=== PATIENT | female | born 1975 | race Caucasian/White ===

== ENCOUNTER 2017-02-18 02:04 | Inpatient (IN) | payer BC ==
--- NOTE | ~2017-02-18 | PA ---
Unit #: [id number] #: [id number] Patient: JOE ADAMS [id number] [facility] [address] [place] [address] [id number] I MR#: [id number] NAME: JOE ADAMS ROOM: P110 Age: 41 Sex: F Admission Date: 02/18/2017 : 1975 Date of Assessment: Attending Physician: Clint Liu M.D. Admitting Physician: Clint Liu M.D. Primary Care Physician: Primary Care Physician No PSYCHIATRIC ASSESSMENT DATE OF SERVICE 02/18/2017. IDENTIFYING DATA Ms. Adams is a 41-year-old, , white female, who is a resident of [place], [place], was self-referred to the hospital on a voluntary basis. CHIEF COMPLAINT "I've been confused, has been taken off Haldol 3 days ago." HISTORY OF PRESENT ILLNESS Ms. Adams is a 41-year-old female, who reports that she feels confused since she has been taken off Haldol 3 days ago and reports that she is not sleeping well and has been having significant mood swings, increasing suicidal thoughts with a plan to find a gun or use carbon monoxide and reports that she and are having increasing verbal altercations and does report some mixed episode of bipolar disorder, stating that her energy level is higher than usual and "I'm never going to get better." She also endorses feelings of hopelessness and helplessness, and suicidal ideation and was seen to be danger to self and therefore recommendation for inpatient level of care for safety and stabilization was made. 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 PAST PSYCHIATRIC HISTORY The patient has had a history of multiple inpatient psychiatric hospitalizations at [facility] and other facilities and has been diagnosed and treated for schizoaffective disorder, bipolar type. Review of the medical records indicate that she has been on a combination of psychotropic medications including long-acting monthly injection of Aristada. PAST MEDICAL HISTORY No acute or chronic medical illnesses. ALLERGIES No known medication allergies. PERSONAL AND SOCIAL HISTORY Unit #: [id number] #: [id number] Patient: JOE ADAMS A 41-year-old white female, who reports that she is and lives at home with her and has fairly decent social support system. MENTAL STATUS EXAMINATION Middle-aged white female, who was casually dressed with fair personal hygiene, appears to be in no acute distress or discomfort. She was awake and alert on interaction with intact orientation to time, place, and person. Her mood was anxious and depressed with a congruent affect. Speech was slow and restricted in content. Her thought processes were disorganized with some looseness of associations and flight of ideas and paranoid ideations and suicidal ideations. Her insight and judgment remain significantly impaired. DIAGNOSTIC IMPRESSION Psychiatric: Schizoaffective disorder, bipolar type, most recent episode depressed, recurrent, moderate, with psychosis. Medical: None. Stressors: Moderate psychosocial stressors. TREATMENT PLAN 1. The patient has presented with a history of chronic mental illness and has been decompensating and will need inpatient hospitalization for safety and stabilization. We will start her back on her home medications. We will adjust the medications and monitor response. 2. Supportive therapy was provided to the patient. 3. Safe, structured, and nourishing environment will be provided. ESTIMATED LENGTH OF STAY 5 to 7 days. ABILITY TO HELP SELF Limited. WILLINGNESS TO HELP SELF The patient appears to be willing to help self. STRENGTHS 1. Communicative. 2. Cooperative. PROBLEMS 1. Chronic dysphoric symptoms. 2. Poor social support system. DISCHARGE CRITERIA This will be contingent upon the patient's ability to show resolution of her depression and psychosis and her ability to stay safe to herself, particularly after discharge from the hospital. Dictated by... Suzan Simeon/chiquita TD: 02/18/2017 06:57 JOB #: [id number] Unit #: [id number] #: [id number] Patient: JOE ADAMS PSYCHIATRIC ASSESSMENT Page 1 of 1 X Clint Liu MD PSYCHIATRIC ASSESSMENT
--- NOTE | ~2017-02-18 | PN ---
Unit #: [id number] #: [id number] Patient: JOE STILL [id number] [facility] [address] [place] [address] [id number] MR#: [id number] NAME: JOE STILL. ROOM: [facility] Age: 41 Sex: F Admission Date: 02/18/2017 : 1975 Attending Physician: Clint Liu M.D. Admitting Physician: Clint Liu M.D. Primary Care Physician: Primary Care Physician Alicia HOLM NOTES DATE OF SERVICE 02/17/2017 DISCUSSION Ms. Still is a 41-year-old white female who was seen today. Chart was reviewed and case was discussed with the staff. She has been anxious, withdrawn, and rather seclusive to herself. Meanwhile, she has been cooperative with the treatment recommendations and has been taking the medications and tolerating them fairly well with no reported side effects. MENTAL STATUS EXAMINATION Middle-aged white female who is casually dressed with fair personal hygiene, appears to be in no acute distress or discomfort. The patient was awake and alert with impaired attention and concentration. Her mood is anxious with congruent affect. She denies any suicidal or homicidal ideations. Her insight and judgment remain slightly impaired. TREATMENT PLAN 1. We will continue her on her current medications and treatment protocol. We will monitor her response to the medications and make further adjustments as needed. 2. We will continue to follow up. Dictated by... Clint Liu M.D. IAA/bzg TD: 02/21/2017 11:18 JOB #: [id number] DANIEL PROGRESS NOTES Page 1 of 1 X Clint Liu MD PROGRESS NOTE
--- NOTE | ~2017-02-18 | HP ---
Unit #: [id number] #: [id number] Patient: JACQUI ADAMS [id number] [place] [address] [id number] MR#: [id number] NAME: JACQUI ADAMS. ROOM: P110 Age: 41 Sex: F Admission Date: 02/18/2017 : 1975 Attending Physician: Clint Liu M.D. Admitting Physician: Clint Liu M.D. Primary Care Physician: Primary Care Physician No HISTORY AND PHYSICAL HISTORY OF PRESENT ILLNESS Jacqui is a 41 year old admitted to [address] [place] [address] with psychotic behavior. She was taken off of her Haldol three days ago. She reports that she has not been sleeping well and has had increased mood swings. She has had other admissions to this facility for treatment of the same. PAST MEDICAL HISTORY Obesity. PAST SURGICAL HISTORY 1. Cholecystectomy. 2. Pilonidal cyst resected 3. Lipoma removed. ALLERGIES No known drug allergies. SOCIAL HISTORY Smokes at least one pack per day. Drinks alcohol on occasion and denies illicit drug use. FAMILY HISTORY Medically noncontributory. REVIEW OF SYSTEMS CONSTITUTIONAL: No fever or chills. HEENT: Denies any sore throat, ear pain or runny nose. CARDIOVASCULAR: Denies chest pain, irregular heart rhythm or palpitations. CHEST: Denies shortness of breath or cough. No hemoptysis. GASTROINTESTINAL: Denies nausea, vomiting, diarrhea or chronic constipation. ENDOCRINE: Denies history of increased thirst or urination. No recent significant weight loss or gain. GENITOURINARY: Denies dysuria, frequency, or hematuria. SKIN: Denies any rashes. HEMATOLOGIC: Denies history of increased bleeding or bruising. MUSCULOSKELETAL: Denies any hot, swollen joints. No generalized muscle pain. NEUROLOGIC: Denies problems with vision or speech. No frequent, severe headaches. No numbness, tingling or weakness in any extremities. Denies loss of bladder or bowel control. Unit #: [id number] #: [id number] Patient: JACQUI ADAMS CURRENT MEDICATIONS 1. Haldol 10 mg q.h.s. 2. Sinequan 25 mg q.h.s. 3. [place] 300 mg b.i.d. 4. Vistaril 50 mg t.i.d. 5. Vibramycin 100 mg b.i.d. 6. Milk of Magnesia p.r.n. 7. Maalox p.r.n. 8. Tylenol p.r.n. 9. Thorazine 50 mg q day PHYSICAL EXAMINATION GENERAL: Alert, obese, in no apparent distress. VITAL SIGNS: Blood pressure 140/82, heart rate 92, respirations 16, temperature 98.6. WEIGHT: 242 pounds. HEIGHT: 5'6". SKIN: Warm and dry without rash or lesion. HEENT: Normocephalic. TMs not viewed. Oral and nasal passages clear. Conjunctivae clear. Pupils equal, round and reactive to light and accommodation. Extraocular movements intact. NECK: Supple without lymphadenopathy or thyromegaly. HEART: Regular rate and rhythm without murmur. LUNGS: Clear. ABDOMEN: Soft, nontender. : Not done. EXTREMITIES: No evidence of cyanosis, clubbing or edema. Moves all extremities without focal deficit. NEUROLOGICAL: Unable to complete extended exam. She does move all extremities without focal deficit. Hand care program director is equal and gait is normal. IMPRESSION Psychiatric admission. RECOMMENDATIONS PSYCHIATRIC: Per psychiatrist. MEDICAL: I see no contraindications to participating in facility's activities. MEDICAL PROGNOSIS Good. MEDICAL CONDITION Stable. Dictated by... Deidra Jefferson PItzA.-Jayleen. for Suzan Ornelas/nickie TD: 02/19/2017 00:35 JOB #: [id number] Unit #: [id number] #: [id number] Patient: JACQUI ADAMS HISTORY AND PHYSICAL Page 1 of 1 X Deidra Jefferson HISTORY AND PHYSICAL
--- NOTE | ~2017-02-18 | PN ---
Unit #: [id number] #: [id number] Patient: JOE ADAMS [id number] [facility] [address] [place] [address] [id number] MR#: [id number] NAME: JOE ADAMS ROOM: [facility] Age: 41 Sex: F Admission Date: 02/18/2017 : 1975 Attending Physician: Clint Liu M.D. Admitting Physician: Clint Liu M.D. Primary Care Physician: Primary Care Physician Alicia HOLM NOTES DATE OF SERVICE: 02/19/2017 SUBJECTIVE Ms. Adams is a 41-year-old white female who was seen today and chart was reviewed, and case was discussed with the staff. She has been anxious, withdrawn, and rather seclusive to herself. Meanwhile, she has been cooperative with treatment recommendations and has been taking the medications and tolerating them fairly well. MENTAL STATUS EXAMINATION Middle-aged white female who was casually dressed with fair personal hygiene, appears to be in no acute distress or discomfort. She was awake and alert with impaired attention and concentration. Her mood was anxious with a congruent affect. She denies any suicidal or homicidal ideations. Her insight and judgment remain slightly impaired. TREATMENT PLAN 1. We will continue on her current medications and treatment protocol. We will monitor her response to medication and make further adjustments as needed. 2. We will continue to follow up. Dictated by... Suzan Simeon/brittanyl TD: 02/20/2017 13:27 JOB #: [id number] DANIEL PROGRESS NOTES Page 1 of 1 X Clint Liu MD PROGRESS NOTE
--- NOTE | ~2017-02-18 | DS ---
Unit #: [id number] #: [id number] [facility]: [facility] [id number] [facility] [address] [place] [address] [id number] MR#: [id number] NAME: JOE ADAMS ROOM: P110 Age: 41 Sex: F Admission Date: 02/18/2017 : 1975 Discharge Date: 02/21/2017 Attending Physician: Clint Liu M.D. Primary Care Physician: Primary Care Physician No DISCHARGE SUMMARY IDENTIFYING DATA Ms. Adams is a 41-year-old white female, who is known to us from previous encounter, was self-referred to the hospital on a voluntary basis. DISCHARGE DIAGNOSES Psychiatric: Schizoaffective disorder, bipolar type, most recent episode depressed, recurrent, moderate, without psychotic features. Medical: None. Stressors: Moderate psychosocial stressors. HISTORY OF PRESENT ILLNESS Please see initial psychiatric evaluation for details. PAST PSYCHIATRIC HISTORY Please see initial psychiatric evaluation for details. PAST MEDICAL HISTORY Please see initial psychiatric evaluation for details. HOSPITAL COURSE The patient was admitted to the adult psychiatric unit at [facility] and was oriented to the hospital environment. Routine p.r.n. medications were initiated, and she was started back on her home medications and was closely monitored. She was started back on her Haldol as she stated that she decompensated rather faster after being taken off without medications and therefore Haldol started back and she was closely monitored and seemed to be doing much better and was awake, alert, oriented, and was denying any suicidal ideations and no hallucinations were noticed and she was also due for her monthly injection of Aristada for which a prescription was provided as well and with no further adjustments in medication, the patient not exhibiting any acute psychosis and not seemed to be danger to self or anyone else, it was decided that she will be discharged home and will continue treatment on an outpatient basis. DISCHARGE MEDICATIONS Aristada 882 mg intramuscular every 30 days for psychosis, lithium 300 mg b.i.d. for bipolar, Haldol 5 mg in the morning and 10 mg at bedtime for bipolar. DISCHARGE CONDITION Stable. PROGNOSIS Unit #: [id number] #: [id number] Patient: JOE ADAMS. Dictated by... Clint Liu M.D. IAA/modl TD: 02/21/2017 06:47 JOB #: [id number] DISCHARGE SUMMARY Page 1 of 1 X Clint Liu MD DISCHARGE SUMMARY
[2017-02-19 11:24] LABS: BASOPHIL% 0.4 % (0-2.5); DIFF IND NO; EOSINOPHIL# 0.2 X10e3 (0-0.7); EOSINOPHIL% 2.1 % (0.0-7.0); HEMATOCRIT 41.6 % (35.0-45.0); HEMOGLOBIN 13.2 gm/dL (12.0-16.0); LYMPHOCYTE# 2.7 X10e3 (1.0-3.5); MEAN CELL VOLUME 84.7 FL (83-96); MEAN CORPUSCULAR HEMOGLOBIN 26.9 PG (28-34); MEAN CORPUSCULAR HGB CONC 31.8 g/dL (30-36); MEAN PLATELET VOLUME 8.9 FL (6.5-11.5); MONOCYTE# 0.7 X10e3 (0-1.0); MONOCYTE% 6.2 % (3.0-12.0); NEUTROPHIL# 7.2 X10e3 (1.5-7.1); NEUTROPHIL% 66.3 % (40-75); PLATELET COUNT 219 X10e3 (140-420); RED BLOOD COUNT 4.92 X10e (3.90-5.30); RED CELL DISTRIBUTION WIDTH 13.7 % (11.0-15.5); WHITE BLOOD COUNT 10.9 X10e3 (4.0-10.5)
[2017-02-19 12:16] LABS: BILIRUBIN,TOTAL 0.5 mg/dL (0.2-2.0); BUN/CREATININE RATIO 17.77; CALCIUM SERUM 9.2 mg/dL (8.4-10.2); CREATININE SERUM 0.9 mg/dL (0.6-1.4); GLOM FILT RATE Estimated 78.4 mL/min (>60); PROTEIN TOTAL SERUM 6.5 g/dL (6.0-8.3)
== END 2017-02-21 10:47 | disposition home or self-care (01) | DRG 885 ==
LOC: P1S 02:04
PROVIDERS: Psychiatry & Neurology Psychiatry
DX: F31.32 Bipolar disorder, current episode depressed, moderate (principal); F25.9 Schizoaffective disorder, unspecified
CPT/HCPCS: 80053; 80178; 85025